=== PATIENT | female | born 1975 | race Caucasian/White ===

== ENCOUNTER → 2017-04-16 | Outpatient (CLI) | payer OTHER ==
--- NOTE | 2017-04-16 14:19 | DIAGNOSTIC IMAGING REPORT ---
MRI OF THE CERVICAL SPINE WITHOUT IV CONTRAST CLINICAL HISTORY: Cervicalgia. Bilateral upper extremity numbness. COMPARISON STUDY: No priors. TECHNIQUE: MRI of the cervical spine is performed utilizing various T1 and T2-weighted sequences in the axial and sagittal planes. IV contrast was not administered for this examination. FINDINGS: Cervical spine: Vertebral body height and alignment are maintained throughout the cervical spine. Normal marrow signal intensity is preserved throughout the imaged osseous structures. There is straightening of the cervical lordosis. The atlantodental articulation appears preserved. The spinous processes are intact as imaged. No destructive bony process is seen. Intervertebral discs: Mild degenerative disc desiccation is seen throughout the cervical spine. Minimal loss of height is suggested at C6-C7. Spinal cord: The cervical spinal cord is normal in morphology and signal intensity. C2-C3: Unremarkable. C3-C4: A small posterior disc osteophyte complex minimally effaces the ventral subarachnoid space. Uncovertebral and facet arthropathy contribute to minimal right-sided neural foraminal stenosis. C4-C5: A posterior disc osteophyte complex minimally effaces the ventral subarachnoid space. Predominantly uncovertebral arthropathy causes minimal right-sided neural foraminal stenosis. C5-C6: A posterior disc osteophyte complex effaces the ventral subarachnoid space. Uncovertebral and facet arthropathy cause mild right neural foraminal stenosis. C6-C7: A posterior disc osteophyte complex is seen eccentric to the right. This effaces the ventral subarachnoid space. There is also [id number] right-sided neural foraminal stenosis at this level. C7-T1: Unremarkable. Soft tissues: The prevertebral and paraspinous soft tissues are normal as imaged. Brain parenchyma: Partially visualized brain parenchyma at the skull base is within normal limits. Maxillary and sphenoid sinus disease is observed. IMPRESSION: 1. Mild multilevel cervical spondylosis as detailed above. This is greatest at C6-C7. See discussion for detailed [id number] analysis. 2. The cervical spinal cord is normal in morphology and signal intensity. Dictated: 04/16/2017 1:34 PM Transcribed: 04/16/2017 2:19 PM Malik Electronically signed by: Tito Cook M.D. 04/16/2017 2:22 PM Dictated Date/Time: 04/16/2017 1:34 PM
== END | disposition home or self-care (01) ==
LOC: C.MRIBC 12:43
PROVIDERS: ATTEND Psychiatry & Neurology Neurology
DX: G95.9 Disease of spinal cord, unspecified (principal); M54.2 Cervicalgia; M79.609 Pain in unspecified limb; R20.0 Anesthesia of skin; R20.2 Paresthesia of skin